=== PATIENT | female | born 1985 | race Caucasian/White ===

== ENCOUNTER 2017-04-12 05:49 | Day surgery (SDC) | payer OTHER ==
[2017-03-30 11:30] LABS: HEMATOCRIT 40.3 % (36.0-47.0); HEMOGLOBIN 13.8 g/dL (12.0-15.5); HGB HCT DIFFERENCE 1.1; MEAN CORPUSCULAR HEMOGLOBIN 29.7 pg (27.0-33.4); MEAN CORPUSCULAR HGB CONC 34.4 g/dL (32.0-36.0); MEAN CORPUSCULAR VOLUME 87 fl (80-97); RED BLOOD COUNT 4.66 10^6/uL (3.72-5.28); RED CELL DISTRIBUTION WIDTH 12.1 % (11.5-14.0); WHITE BLOOD COUNT 9.6 10^3/uL (4.0-10.5)
[2017-03-30 11:32] LABS: APPEARANCE,URINE CLEAR; BILIRUBIN,URINE NEGATIVE (NEGATIVE); GLUCOSE, URINE NEGATIVE (NEGATIVE); KETONES,URINE TRACE mg/dL (NEGATIVE); LEUKOCYTE ESTERASE,URINE NEGATIVE (NEGATIVE); NITRITE,URINE NEGATIVE (NEGATIVE); PROTEIN,URINE NEGATIVE (NEGATIVE); URINE SPECIFIC GRAVITY 1.011; UROBILINOGEN,URINE NEGATIVE mg/dL (<2.0)
[2017-03-30 11:52] LABS: ALANINE AMINOTRANSFERASE 41 U/L (9-52); ALBUMIN 4.8 g/dL (3.5-5.0); ALKALINE PHOSPHATASE 83 U/L (38-126); ANION GAP 13 (5-19); ASPARTATE AMINO TRANSFERASE 28 U/L (14-36); BILIRUBIN,DIRECT 0.5 mg/dL (0.0-0.4); BILIRUBIN,TOTAL 0.7 mg/dL (0.2-1.3); BLOOD UREA NITROGEN 14 mg/dL (7-20); CALCIUM 10.2 mg/dL (8.4-10.2); CARBON DIOXIDE 28 mmol/L (22-30); CHLORIDE 100 mmol/L (98-107); CREATININE RESULT 0.71 mg/dL (0.52-1.25); GLUCOSE 89 mg/dL (75-110); POTASSIUM 4.8 mmol/L (3.6-5.0); SODIUM 140.8 mmol/L (137-145); TOTAL PROTEIN 8.1 g/dL (6.3-8.2)
[~2017-04-12 05:49] MED LIST: CEFAZOLIN 1 GM/D5W RTU 1 GM/50 ML RTUPB IV PRN; LACTATED RINGERS 1000 ML IV PRN; LIDOCAINE 0.5% INJ-PF (5 MG/ML) 50 ML SDV SUBCUT PRN
[2017-04-12] MEDS ORDERED: BUPIVACAINE HCL 0.25% /EPINEPHRINE INJ/PF 30 ML SDV ONE (07:13)
[2017-04-12] MEDS ORDERED: MIDAZOLAM 2 MG/2 ML INJ ONE ×2 (07:27→07:35)
[2017-04-12] MEDS ORDERED: PROPOFOL INJ 200 MG/20 ML VIAL IV ONE (07:27)
[2017-04-12] MEDS ORDERED: FENTANYL CITRATE INJ/PF 100 MCG/2 ML AMPUL ONE ×2 (07:27→09:04)
[2017-04-12] MEDS ORDERED: ACETAMINOPHEN 100 ML IV ONE (07:28)
[2017-04-12] MEDS ORDERED: HYDROMORPHONE HCL INJ/PF 2 MG/ML AMPULE ONE (07:28)
[2017-04-12] MEDS ORDERED: SCOPOLAMINE HYDROBROMIDE 1.5 MG PATCH.TD72 ONE (07:35)
[2017-04-12] MEDS ORDERED: PROMETHAZINE HCL INJ 25 MG/1 ML VIAL IV PRN ×2 (08:20)
[2017-04-12] MEDS ORDERED: ONDANSETRON HCL INJ/PF 4 MG/2 ML SDV IV PRN (08:20)
[2017-04-12] MEDS ORDERED: MEPERIDINE HCL/PF INJ 25 MG/1 ML DISP.SYRIN IV PRN (08:20)
[2017-04-12] MEDS ORDERED: DIPHENHYDRAMINE HCL 50 MG/ML VIAL IV PRN (08:20)
[2017-04-12] MEDS ORDERED: FENTANYL CITRATE INJ/PF 100 MCG/2 ML AMPUL IV PRN ×3 (08:20)
[2017-04-12] MEDS ORDERED: RINGERS SOLUTION,LACTATED 1,000 ML IV PRN (09:53)
[2017-04-12] MEDS ORDERED: MORPHINE SULFATE 10 MG/ML INJ IV PRN (09:56)
[2017-04-12] MEDS ORDERED: OXYCODONE-ACETAMINOPHEN 5-325 MG TABLET PO PRN (09:58)
[2017-04-12] MEDS ORDERED: BUPIVACAINE HCL 0.25% /EPINEPHRINE INJ/PF 30 ML SDV INFIL PRN (10:06)
--- NOTE | 2017-04-12 11:18 | OPERATIVE REPORT E ---
Operative Report NAME: LULA ROSAS : 1985 AGE: 31Y DATE OF SURGERY: 04/12/2017 ROOM: OR PREOPERATIVE DIAGNOSES: 1. ABNORMAL UTERINE BLEEDING. 2. DYSMENORRHEA. 3. CHRONIC PELVIC PAIN. POSTOPERATIVE DIAGNOSES: 1. ABNORMAL UTERINE BLEEDING. 2. DYSMENORRHEA. 3. CHRONIC PELVIC PAIN. PROCEDURE: Transvaginal hysterectomy with bilateral salpingectomy and excision of nevus. SURGEON: PAUL WU M.D. TRUSTEE OF ESTATE: Cindy Darden, secretary administrative assistant surgical elastic knitter. ANESTHESIA: Dr. Acuña with general. FINDINGS: An 8-week size uterus with normal ovaries and fallopian tubes, 2 small peroneal skin tags or nevi are present. COMPLICATIONS: None. ESTIMATED BLOOD LOSS: 50 mL. SPECIMENS REMOVED: Uterus, cervix, bilateral fallopian tubes. PROCEDURE IN DETAIL: Patient was taken to the operating room, prepared and draped in normal sterile fashion in a dorsal lithotomy position with candy cane stirrups. A weighted speculum was placed in the vagina, the urethra was prepped, and a Marquez catheter was placed to gravity. A [place] retractor was placed in the anterior vagina, and the cervix was grasped with a single-tooth tenaculum and then injected with approximately 10 mL of 0.25% bupivacaine with epinephrine in a circumferential manner around the cervix. This was massaged into the tissues, and the cervix was then scored circumferentially using a 10-blade scalpel. The vaginal mucosa was then dissected away sharply from the uterus using Mayos and pickups until the ureterovesical junction could be identified, and this was transected using the Mayos and the peritoneal cavity was entered on the anterior aspect of the uterus. This was repeated on the posterior aspect, and the weighted speculum was replaced with a long weighted speculum in the anterior aspect. The [place] was placed into peritoneal cavity to hold the bladder away. The uterosacral ligaments were then clamped and transected with Mayos and sutured with 0 Vicryl. These were tied with hemostats on both sides. Then with a LigaSure, the uterine artery was coagulated and skeletonized to the fundus until the specimen was completely freed and removed from the field. A small amount of bleeding was noticed from the utero-ovarian ligament on the patient's right. This was tied off with 0 Vicryl [id number] stitch. The fallopian tubes were then grasped bilaterally with [place] following the mesosalpinx. This was removed with a LigaSure as well with good hemostasis. The bowel was inspected, and a sponge stick was placed into the peritoneal cavity to hold the bowel away. *------* closure of the vaginal cuff was begun with an 0 Vicryl runner starting on the left vaginal angle and closed in a running locked fashion, removing the sponge stick as needed until the vaginal cuff was completely closed. The vagina was then irrigated, and the cuff was inspected and found to be hemostatic and closed. The nevus was then identified at her perineum, and this was undermined with a small amount of bupivacaine 0.25% with epinephrine. These were then removed with a 15 blade. The defect area was then closed with interrupted sutures of 4-0 Vicryl. Patient tolerated procedure well. Sponge, lap, and needle counts were correct x2. Patient was taken to recovery in stable condition. DICTATING PHYSICIAN: PAUL WU M.D. [id number] PHY#: [id number] ID: [id number] JOB#: [id number] ACCT: [id number] cc:PAUL WU M.D. >
[2017-04-12] MEDS ORDERED: ACETAMINOPHEN INJ/PF 1000 MG/100 ML SDV IV ONE (13:00)
[2017-04-12] MEDS ORDERED: KETOROLAC TROMETHAMINE INJ/PF 30 MG/1 ML SDV IV SCH (14:00)
[2017-04-12] MEDS ORDERED: DEXAMETHASONE SOD PHOSPHATE INJ 4 MG/1 ML VIAL ONE (16:38)
[2017-04-12] MEDS ORDERED: ROCURONIUM BROMIDE INJ 50 MG/5 ML VIAL IV ONE (16:38)
[2017-04-12] MEDS ORDERED: METOCLOPRAMIDE HCL INJ/PF 10 MG/2 ML SDV ONE (16:38)
[2017-04-12] MEDS ORDERED: LIDOCAINE 2% INJ-PF (20 MG/ML) 2 ML AMPUL ONE (16:38)
[2017-04-12] MEDS ORDERED: GLYCOPYRROLATE INJ 0.4 MG/2 ML VIAL ONE (16:38)
[2017-04-12] MEDS ORDERED: NEOSTIGMINE METHYLSULFATE 10 MG/10 ML VIAL ONE (16:38)
[2017-04-12] MEDS ORDERED: ONDANSETRON HCL INJ/PF 4 MG/2 ML SDV ONE (16:38)
[2017-04-12] MEDS ORDERED: KETOROLAC TROMETHAMINE 60 MG/2 ML SDV ONE (16:38)
--- NOTE | 2017-04-12 17:12 | PDOC DISCHARGE SUMMARY ---
General - Admit/Disc Date/PCP Admission Date/Primary Care Provider: 04/12/17 05:49 Discharge Date: 04/12/17 - Discharge Diagnosis (1) Abnormal uterine and vaginal bleeding, unspecified Is this a current diagnosis for this admission?: Yes (2) Anemia Is this a current diagnosis for this admission?: Yes (3) Pelvic pain Is this a current diagnosis for this admission?: Yes - Additional Information Home Medications: Vits96/Iron Fum/Folic [ Tablet] 1 each PO DAILY 08/26/14 Ibuprofen [Motrin 800 mg Tablet] 800 mg PO Q8HP PRN #30 tablet 08/28/14 Alprazolam [Xanax 0.5 mg Tablet] 0.5 tab PO Q6HP PRN 03/30/17 Dextroamphetamine/Amphetamine [Adderall XR 10 mg Capsule] 1 cap.sr PO DAILY 12/07 History of Present Illness History of Present Illness: LULA ROSAS is a 31 year old female Hospital Course Hospital Course: underwent vaginal hysterectomy without difficulty. unremarkable post op course. desires discharge after void. Physical Exam - Physical Exam Vital Signs: Temp Pulse Resp BP Pulse Ox 98.6 F 63 16 89/48 L 98 04/12/17 14:59 04/12/17 14:59 04/12/17 14:59 04/12/17 14:59 04/12/17 14:59 Intake & Output 04/11/17 04/12/17 04/13/17 06:59 06:59 06:59 Intake Total 0 1550 Output Total 230 Balance 0 1320 General appearance: PRESENT: no acute distress, cooperative Result Laboratory Results: 03/30/17 10:55 03/30/17 10:55 Plan Discharge Plan: discharge home. keep follow up appt with Dr. Vail as scheduled. Time Spent: Less than 30 Minutes
[2017-04-12 17:50] VITALS: BP 120/88
[2017-04-13] MEDS ORDERED: IBUPROFEN 800 MG TABLET PO PRN (14:00)
== END 2017-04-12 19:20 | disposition home or self-care (01) ==
LOC: INOR 05:49 → UNDOADMIN 05:49 → OROUT 05:49 → EDSTATUS 07:30 → 2N 10:28 → INOR 10:28 → OROUT 19:20 → UNDODISIN 19:20
PROVIDERS: ATTEND Obstetrics & Gynecology
PROC: 0UT77ZZ Resection of Bilateral Fallopian Tubes, Via Natural or Artificial Opening (ICD-10-PCS; 2017-04-12)
PROC: 0HB9XZZ Excision of Perineum Skin, External Approach (ICD-10-PCS; 2017-04-12)
PROC: 0UT97ZZ Resection of Uterus, Via Natural or Artificial Opening (ICD-10-PCS; principal; 2017-04-12 07:30)
DX: N93.9 Abnormal uterine and vaginal bleeding, unspecified (principal); N94.6 Dysmenorrhea, unspecified; G89.29 Other chronic pain; R10.2 Pelvic and perineal pain; N90.89 Other specified noninflammatory disorders of vulva and perineum; N87.0 Mild cervical dysplasia; Z88.2 Allergy status to sulfonamides; Z79.899 Other long term (current) drug therapy
CPT/HCPCS: 86900; 86901; 36415 ×2; 86850; 85027; 81025; 80053; 81001; 88304 ×2; 88307 ×2; 58262; 11200; J2250; J3490 ×3; J0690; J1100; J1885 ×2; J3010; J2765; J1170; J2405; J7120; J2704; J0131; 944